=== PATIENT | female | born 1995 | race Asian ===

== ENCOUNTER 2025-03-12 06:51 | Emergency (ER) | payer OTHER ==
[~2025-03-12] VITALS: Ht 157.5 cm; Wt 60.5 kg
[2025-03-12] MEDS ORDERED: MAGN100T PO (06:58)
[2025-03-12] MEDS ORDERED: PREN-64 PO (06:58)
[2025-03-12 07:01] VITALS: BP 121/70; PULSE 107; RESP 18; TEMP 98.1; O2SAT 100
[2025-03-12 08:14] LABS: PLATELET COUNT (AUTO) 260 K/uL (150-450); RED BLOOD CELL COUNT(AUTO) 3.80 MIL/uL (4.00-5.20); RED CELL DISTRIBUTION WIDTH 12.6 % (11.5-14.5); WHITE BLOOD COUNT (AUTO) 9.2 K/uL (4.5-11.0)
[2025-03-12 08:22] LABS: CALCIUM, TOTAL 9.3 mg/dL (8.8-10.5); CREATININE 0.52 mg/dL (0.60-1.30); GLOMERULAR FILTR. RATE CALC > 60 mL/min (>60); GLUCOSE,RANDOM 89 mg/dL (70-110); SODIUM SERUM 137 mmol/L (136-145); UREA NITROGEN, BLOOD 7 mg/dL (7-18)
[2025-03-12 08:28] LABS: ASPARTATE AMINOTRANSFERASE 22.0 U/L (15-37); TOTAL PROTEIN, SERUM 7.9 g/dL (6.4-8.2)
== END 2025-03-12 09:16 | disposition home or self-care (01) ==
LOC: EMS 06:51
DX: O26.892 Other specified pregnancy related conditions, second trimester (principal); L29.9 Pruritus, unspecified; Z3A.23 23 weeks gestation of pregnancy; Z79.899 Other long term (current) drug therapy
CPT/HCPCS: 80048; 80076; 83690; 85025; 99283